=== PATIENT | female | born 1930 | race Hispanic/Latino ===

== ENCOUNTER 2016-12-30 13:00 | Outpatient (CLI) | payer MEDICARE ==
--- NOTE | 2016-12-30 14:33 | Cat Scan Report ---
CT CHEST WITHOUT CONTRAST: HISTORY: Nonspecific abnormal finding of lung field. TECHNIQUE: Helical CT with sagittal and coronal reformatted images. FINDINGS: Heart size is normal. There is no evidence of adenopathy within the mediastinum. Pulmonary devan are free of any mass and the lungs are clear of infiltrates. The pleura is unremarkable. No masses involve the chest wall. No abnormalities are noted within the upper abdomen. The adrenal glands are normal. IMPRESSION: Unremarkable noncontrast CT chest.
== END 2016-12-30 13:01 | disposition home or self-care (01) ==
LOC: CT 13:00
DX: R91.8 Other nonspecific abnormal finding of lung field (principal)
CPT/HCPCS: 71250

== ENCOUNTER 2017-02-09 11:53 | Outpatient (CLI) | payer MEDICARE | END 2017-02-09 11:54 | disposition home or self-care (01) | LOC: LABHHL 11:53 | PROVIDERS: ATTEND Internal Medicine | DX: E11.9 Type 2 diabetes mellitus without complications (principal); J18.9 Pneumonia, unspecified organism | CPT/HCPCS: 36415; 83036 ==